=== PATIENT | female | born 1965 | race Caucasian/White ===

== ENCOUNTER → 2017-03-18 | Outpatient (REF) | payer OTHER | LOC: M LAB REF 16:25 | PROVIDERS: ATTEND Physician Assistant Medical | DX: R35.0 Frequency of micturition (principal) ==

== ENCOUNTER 2017-06-05 06:47 | Inpatient (IN) | payer BC, OTHER ==
--- NOTE | 2017-05-29 12:52 | HPE ---
DATE OF ADMISSION: 06/05/2017 ATTENDING: Dr. Osmin Phelan. ADMISSION DIAGNOSIS: Back pain, pain radiating to her lower extremities. HISTORY: This a pleasant 51-year-old female patient with progressively worsening back pain and pain mainly down her right lower extremity and occasionally to her left lower extremity. She continues to have symptoms of normal day-to-day activities and work-related activities. She has elected for surgery for continued symptoms. She has consented by Dr. Phelan for a lumbar decompression and fusion from the right sided L4-5 and posterior interbody spinal fusion using hardware and bone graft and pedicle screws. She has failed to improve with nonsteroidal anti-inflammatory drugs (NSAIDs), physical therapy, rest and activity modification. X-rays are notable for dynamic spondylolisthesis L4-5, degenerative changes primary at L4-5 and facette degenerative changes at L4-5. MRI is consistent with spinal stenosis and a spondylolisthesis at L4-5. ALLERGIES: Seafood but no drug allergies. CURRENT MEDICATIONS: Reported by the patient as: - albuterol as needed as needed. - gabapentin 300 mg 1 tablet twice a day - lisinopril/hydrochlorothiazide 25/12.5 mg one tablet once a day - Motrin 800 mg one tablet three times a day. She was instructed to discontinue that 5 days prior to surgery. MEDICAL HISTORY: 1. Spinal stenosis. 2. Lumbar degenerative disc disease. 3. Lumbar spondylolisthesis L4-5. 4. Hypertension. 5. Elevated cholesterol. 6. Chronic obstructive pulmonary disease. PAST SURGICAL HISTORY: 1. Tubal ligation. 2. Appendectomy. 3. Foot surgery. 4. Gallbladder removed. 5. Hernia repair. SOCIAL HISTORY: She discontinued smoking. She occasionally uses alcohol. She is employed at [employer]: Denies fever or chills. Denies chest pain, shortness breath or cough. Denies recent URI or UTI symptoms. Has persistent back pain and pain down mainly her right leg, sometimes down her left leg. Denies any nausea or vomiting. PHYSICAL EXAMINATION: Today reveals alert well-nourished, well-developed female patient. She ambulates with a slow gait but her gait is not wide-based. She does not use assistive devices. Mood and affect are appropriate for the situation. Straight leg raise testing is irritable on the right, negative on the left. There is decreased light touch along the anterior tomas on the right side. Neck is supple without adenopathy or JVD. Lungs are clear to auscultation without rales or wheeze. Heart: Regular rate and rhythm. Abdomen: Bowel sounds are present. Height 63 inches, weight 218 pounds, temperature 97.8, pulse 82, respirations 14, blood pressure 122/98, BMI 37. Laboratory data was done at Dr. Dwayne Yan's office and that is pending for review. Medical optimization Dr. Dwayne Yan not present for review today. IMPRESSION: Symptomatic lumbar degenerative disc disease. Lumbar spinal stenosis and a dynamic spondylolisthesis at L4-5. Consented for a right-sided unilateral lumbar decompression L4-5 with pedicle screws, interbody fusion and bone graft of the posterior lumbar fusion.
[~2017-06-05] VITALS: Ht 162.6 cm; Wt 100.6 kg
[~2017-06-05 06:47] MED LIST: BACT800T5 PO; IBUP80TA PO; LISI20TA PO; NEUR300C PO; PROAAER10 INH; [UNRECOGNIZED DRUG - OTHER] PO
[2017-06-05] MEDS ORDERED: GABAPENTIN 300 MG CAP PO ONE (07:00)
[2017-06-05] MEDS ORDERED: LR 1,000 ML IV SCH ×2 (07:00→19:15)
[2017-06-05] MEDS ORDERED: PERCOCET 5MG/325MG TAB PO ONE (07:00)
[2017-06-05] MEDS ORDERED: CelecoXIB (CeleBREX) 100 MG CAP PO ONE (07:00)
[2017-06-05] MEDS ORDERED: ROCURONIUM BROMIDE 50 MG/5 ML VIAL As Ordered ONE ×2 (12:51→13:07)
[2017-06-05] MEDS ORDERED: LIDOCAINE 2% INJ 100 MG/5 ML SDV (FOR ANES.) As Ordered ONE (12:51)
[2017-06-05] MEDS ORDERED: PROPOFOL 200 MG/20 ML VIAL As Ordered ONE (12:51)
[2017-06-05] MEDS ORDERED: HYDROmorphone HCL 2 MG/ML 1ML VIAL (J1170) As Ordered ONE (12:51)
[2017-06-05] MEDS ORDERED: fentaNYL 100 MCG/2 ML INJECTION (J3010) As Ordered ONE (12:51)
[2017-06-05] MEDS ORDERED: MIDAZOLAM INJ 2 MG/2 ML VIAL (J2250) As Ordered ONE ×2 (12:51→14:09)
[2017-06-05] MEDS ORDERED: ONDANSETRON 4MG/2ML VIAL (J2405) As Ordered ONE ×2 (12:51→19:00)
[2017-06-05] MEDS ORDERED: NEOSTIGMINE 10 MG/10 ML VIAL (J2710) As Ordered ONE (13:04)
[2017-06-05] MEDS ORDERED: GLYCOPYRROLATE INJ 0.2 MG/ML 2 ML VIAL As Ordered ONE (13:04)
[2017-06-05] MEDS ORDERED: DESFLURANE 240 ML INHALANT As Ordered ONE (16:02)
[2017-06-05] MEDS ORDERED: ceFAZolin 2 GM/D5W 50 ML IV BAG (J0690 PER 500MG) As Ordered ONE (16:12)
[2017-06-05] MEDS ORDERED: fentaNYL 250 MCG/5 ML INJECTION (J3010) As Ordered ONE (16:20)
[2017-06-05] MEDS ORDERED: BUPIVACAINE HCL 0.5% 10 ML VIAL As Ordered ONE (17:55)
[2017-06-05] MEDS ORDERED: BUPIVACAINE LIPOSOME/PF 1.3% 20 ML VIAL (13.3MG/ML)(EXPAREL) As Ordered ONE (17:55)
[2017-06-05] MEDS ORDERED: MORPHINE 10 MG/ML 1ML VIAL IV PRN (19:15)
[2017-06-05] MEDS ORDERED: METOCLOPRAMIDE INJ 10MG/2ML VIAL (J2765) IV PRN (19:15)
[2017-06-05] MEDS ORDERED: HYDROmorphone HCL 1 MG/ML SYRINGE (J1170) IV PRN (19:15)
[2017-06-05] MEDS ORDERED: ONDANSETRON 4MG/2ML VIAL (J2405) IV PRN (19:15)
[2017-06-05] MEDS ORDERED: PERCOCET 5MG/325MG TAB PO PRN ×2 (19:15→19:30)
[2017-06-05] MEDS ORDERED: fentaNYL 100 MCG/2 ML INJECTION (J3010) IV PRN (19:15)
[2017-06-05] MEDS ORDERED: D5W/LR 1,000 ML IV SCH (19:30)
[2017-06-05] MEDS ORDERED: ALBUTEROL 90 MCG/ACT 8GM HFA INHALER INH PRN (19:30)
[2017-06-05] MEDS ORDERED: PROMETHAZINE INJ 25 MG/ML VIAL (J2550) IV PRN (19:30)
[2017-06-05 19:40] VITALS: BP 134/81
[2017-06-05 20:20] VITALS: BP 134/85
[2017-06-05] MEDS: PERCOCET 5MG/325MG TAB PO PRN (20:40)
[2017-06-05] MEDS: GABAPENTIN 300 MG CAP PO SCH (20:40)
[2017-06-05 21:20] VITALS: BP 140/87
[2017-06-05 22:20] VITALS: BP 149/91
[2017-06-05 23:20] VITALS: BP 142/89
[2017-06-06 00:20] VITALS: BP 145/89
[2017-06-06 02:00] VITALS: BP 142/80
[2017-06-06] MEDS: PERCOCET 5MG/325MG TAB PO PRN ×4 (03:44→17:16)
[2017-06-06 06:00] VITALS: BP 139/77
[2017-06-06] MEDS ORDERED: PERC5TAB12 PO (08:46)
[2017-06-06] MEDS: GABAPENTIN 300 MG CAP PO SCH ×2 (09:00→21:19)
[2017-06-06] MEDS: MOM 30ML SUSPENSION UDC PO SCH (09:02)
[2017-06-06] MEDS: METAMUCIL (PSYLLIUM) PACKET PO SCH (09:02)
[2017-06-06] MEDS: LISINOPRIL 20 MG TAB PO SCH (09:03)
[2017-06-06] MEDS: hydroCHLOROthiazide 12.5 MG CAPSULE PO SCH (09:03)
[2017-06-06 10:00] VITALS: BP 107/69
[2017-06-06] MEDS: HYDROmorphone HCL 1 MG/ML SYRINGE (J1170) IV PRN ×2 (11:19→14:13)
--- NOTE | 2017-06-06 12:06 | REP ---
PORTABLE LUMBAR SPINE, ONE VIEW: HISTORY: Spondylolisthesis. A single portable lateral radiograph was obtained. Metal probes are present overlying the neural arch at the L4-5 and L5-S1 levels. Unreviewed
[2017-06-06 14:00] VITALS: BP 115/64
[2017-06-06 22:00] VITALS: BP 107/61
[2017-06-07] MEDS: PERCOCET 5MG/325MG TAB PO PRN ×2 (03:16→12:25)
[2017-06-07 06:00] VITALS: BP 119/66
[2017-06-07] MEDS ORDERED: MORP15TASA PO (07:17)
[2017-06-07] MEDS: GABAPENTIN 300 MG CAP PO SCH (08:48)
[2017-06-07 08:49] VITALS: BP 119/66
[2017-06-07] MEDS: METAMUCIL (PSYLLIUM) PACKET PO SCH (08:49)
[2017-06-07] MEDS: MOM 30ML SUSPENSION UDC PO SCH (08:49)
[2017-06-07] MEDS: LISINOPRIL 20 MG TAB PO SCH (08:49)
[2017-06-07] MEDS: hydroCHLOROthiazide 12.5 MG CAPSULE PO SCH (08:49)
[2017-06-07] MEDS ORDERED: INFLUENZA QUADRIVALENT PF VACCINE 0.5ML SYRINGE (90686) IM ONE (09:00)
[2017-06-07] MEDS ORDERED: MORPHINE 15 MG SA TAB PO SCH (09:00)
--- NOTE | 2017-06-08 10:18 | RO ---
DATE OF PROCEDURE: 06/05/2017 PREOPERATIVE DIAGNOSIS: L4-5 spondylolisthesis with neurogenic claudication affecting the right more than the left lower extremity. POSTOPERATIVE DIAGNOSIS: L4-5 spondylolisthesis with neurogenic claudication affecting the right more than the left lower extremity. PROCEDURE PERFORMED: Right unilateral laminectomy L4 for decompression of the thecal sac and exiting nerve root, right unilateral laminectomy L5 for decompression of the thecal sac and traversing nerve root, posterior interbody fusion at L4-5 combined technique including removal of disc material endplate preparation and intertransverse fusion, posterior nonsegmental instrumentation with pedicle screws at L4-5, harvest and placement of morselized iliac crest autograft for spine surgery, harvest and placement of local autograft for spine surgery. SURGEON: Osmin Phelan MD SHIPS EQUIPMENT ENGINEER: GISSEL Calixto ANESTHESIA: General anesthesia. ESTIMATED BLOOD LOSS: 300 mL replaced with crystalloid. COMPLICATIONS: No complications. COMPONENTS USED: Include K2M ALEUTIAN pedicle screw system size of 65, 45 mm pedicle screws times two, size 65 45 pedicle screws times two, 40 mm connecting mihaela the appropriate end caps, also utilized 10 mL demineralized bone matrix putty, 15 mL crushed cancellus donor graft. Consent reviewed in detail with the patient including a sara discussion of the pathology involved, procedure proposed, alternatives including doing nothing and risks including but not limited to pain, failure, infection, bleeding, blood loss, incomplete relief of symptoms, need for additional surgery, nerve injury and other medical issues. The patient understands and agrees to proceed with surgery. OPERATIVE COURSE: Patient identified in the holding area, site and side verified. She was brought to the operating room. General endotracheal anesthesia was administered. She was positioned in a prone position on the Renny frame for the lumbar spine, knees slightly flexed. Once I and the environmental engineering manager were comfortable with the patient's positioning, she was then sterilely prepped and draped in usual fashion. During the procedure, Cruz was to gravity. Next, the patient's body mass index was greater than 40 and this significantly extended the difficulty and length of time required to implement this procedure. Next, the incision was outlined with a marking pen, infiltrated with 0.25% Marcaine with epinephrine and made with a 10 blade knife. The incision was based on bony landmarks and the incision was approximately 10 cm long. It was developed down through skin and subcuticular tissues to the posterior lumbar fascia. Bipolar and monopolar cautery were utilized for hemostasis. At the posterior lumbar fascia, we reflected the posterior lumbar fascia off of the spinous processes, leaving the midline interspinous ligament intact. I first stood on the right side of the table using 3.5 loupe magnification. Mr. Richardson initially stood on the left side of the table while I did this dissection and assisted including suction and helping with retraction. The dissection continued down the lamina of 4 and 5 exposing them. I utilized the high-speed bur to drill a divot in the lamina 5 and the lamina 4 and then we obtained a cross-table lateral x-ray with metallic probes in the divot marking the 4-5 level. Next, once the level was verified, the dissection continued exposing superiorly and inferiorly. For the contralateral side we switched sides. Mr. Richardson utilized the Mina retractor on the patient's right and I implemented dissection over the transverse processes of 4 and 5. Next, I dissected the left paraspinal musculature down to the facet complex of 4-5. We then again switched sides. Mr. Richardson utilizing the Mina retractor and we dissected to the transverse processes of 4 and 5 on the patient's left. Next, once this was accomplished, we irrigated, placed the shadow line retractor on the patient's right side for exposure of the 4-5 level. At this stage, my loupe and headlamps were removed and we brought in the operating microscope for additional portions of the procedure. I removed the right facet complex of 4-5 using a Leksell and this bone graft was retained. I removed posterior lamina of 4 and 5 with the Leksell on the right side and this bone graft material was retained. Once this was accomplished, I utilized the high-speed bur, Mr. Richardson utilized suction and retraction apparatus. We utilized the high-speed bur to implement the right unilateral laminectomy of 4, extending superiorly through the bare area of 4 laterally, through the 4-5 facet complex at the level of the pars and inferiorly into the L5 lamina and into the L5 bare area and undercutting the spinous processes of 4 and 5. Next, lateral recess was decompressed with #2 Kerrison's. I removed the posterior longitudinal ligament using #2 Kerrison's as well as curettes, exposing the thecal sac. Bipolar cautery was utilized for hemostasis. Root retractors were used by Sol Dylan to expose the disc at 4-5. Bipolar cautery was utilized, the disc annulus was opened by myself with an 11 blade, and disk material was removed from the right side at 4-5. This was followed by conical reamers beginning with a size 8 and up through a size 11, which seemed to fit well. I then rasped the vertebral body end plates at 4-5 using a ring curette and I placed an 11 mm x 28 mm sounding device in the interspace and this seemed to fit appropriately. Next, the disc was then removed. Irrigation was accomplished. Next, the operating microscope was removed from the field and the C-arm was brought in. The C-arm was draped and moved into the lateral position and carefully positioned. We began placement of pedicle screws on the left side for distraction through the interspace. I accessed the pedicle on the left at 4-5 by first opening with the high-speed bur followed by use of the pedicle finder, the ball-tip probe, the 55 tap, the ball tip probe to verify pedicle tract integrity, including the floor, and then measurement and placement of screws. At the L4 level on the left side, I placed a 45 mm screw based on the measurement of the ball tip wire and the appearance of fluoroscopic images. Next, the L5 level was approached in a similar fashion and at the L5 level I measured and placed a 40 mm pedicle screw. Next, once this was accomplished the connecting mihaela was placed across the screws, caps were placed and I distracted across the connecting mihaela to open the interspace better. Next, attention was then turned to the contralateral right side. We first obtained from the iliac crest bone graft from the patient's right iliac crest. This was exposed through a separate fascial incision and I obtained the bone graft using large Lynch curettes. This was then irrigated and I closed the fascial incision. Next, I utilized dry Gelfoam which was used to pack the defect. Next, once this was accomplished we packed the 28 mm x 11 mm CASCADIA titanium cage with iliac collapsed morselized bone graft. I also coated the cage with demineralized bone matrix putty. Additional bone graft was placed into the 10 mm funnel and this was tamped into the interspace along with demineralized putty. I then placed the 28 mm CASCADIA cage. Mr. Richardson retracted the thecal sac and traversing nerve root, and I tamped the cage into place. The cage was rotated to the 11 mm height and I verified cage placement using fluoroscopic images. Once this was accomplished, we removed the targeting handle and we turned our attention to the pedicle screws. On the left side, I released the distraction tension on the pedicle screws and I placed the left pedicle screws in slight compression. On the right side, we placed pedicle screws in a similar fashion as on the left, again cannulating the L4 pedicle by drilling the mammillary process using pedicle finder followed by a ball tip guide followed by the tap followed by again use of the ball tip guide verifying the pedicle tract, including the floor, measurement and placement of a 45 screw at L4 on the patient's right side. At L5 we accessed to the pedicle in a similar fashion and placed a 40 mm screw. Next, the connecting mihaela 40 mm was placed and I placed it on the patient's right side in compression and placed the end caps, which were secured using the torque counter torque device. Next, using Mina retractors. Mr. Richardson exposed transverse process and I placed remaining iliac crest and also local bone, which had been harvested using the Lukens trap, mixed with demineralized bone matrix putty as well as the 15 mL of crushed cancellous over the transverse processes which had been decorticated on the patient's right and left sides. Additional bone material was placed in the interlaminar and around the facet on the patient's left side since the laminectomy was accomplished through the right side. Next, prior to doing this we had irrigated. I also added vancomycin crystals, approximately 1 gram, to the operative field and bone graft that was being placed and we irrigated this well with concentrated bacitracin. Next, once this was accomplished, retractors were removed and the posterior lumbar fascia was reapproximated with interrupted #1 and #0 stitches. Next, Exparel local anesthetic solution 20 mL mixed with 20 mL saline mixed with 20 mL 0.5% Marcaine was obtained and was injected circumferentially around the wound for perioperative pain control. Next, the deep dermis was approximated with interrupted stitch and skin was reapproximated with Prineo dressing. Next, once this was accomplished the patient was moved to the supine position on the hospital bed. The Cruz was removed. She was extubated. She was moved to recovery room in good condition. This patient received a second dose of Ancef at 4 hours into the operative procedure. Mr. Richardson was present and participated in the entirety case of the case in the capacity of first crusher. For further details, please refer to medical record.
--- NOTE | 2017-06-08 16:54 | DSES ---
DATE OF ADMISSION: 06/05/2017 DATE OF DISCHARGE: 06/07/2017 ADMITTING DIAGNOSIS: L4-5 spondylolisthesis with neurogenic claudication affecting the right greater than left lower extremity. OTHER DIAGNOSES: 1. Hypertension. 2. Hyperlipidemia. 3. Chronic obstructive pulmonary disease. DISCHARGE DIAGNOSIS: L4-5 spondylolisthesis with neurogenic claudication affecting the right greater than left lower extremity status post right-sided unilateral lumbar decompression at L4-5 with pedicle screws, interbody fusion, and bone graft of the posterior lumbar fusion. The patient is a 51-year-old female with progressively worsening low back pain with radiation mainly down into her right lower extremity and occasionally her left lower extremity. She continued to have symptoms with her normal activities of daily living, so she consented for a lumbar decompression and fusion from the right-sided L4-5 and posterior interbody spinal fusion using hardware and bone graft with pedicle screws with Dr. Phelan. OPERATION PERFORMED: 1. Right unilateral laminectomy at L4 and L5 for decompression of the thecal sac and exiting nerve root. 2. Posterior interbody fusion at L4-5 combined technique, including removal of disc material and plate preparation and intertransverse fusion with posterior non-segmental instrumentation with pedicle screws at L4-5. 3. [place] and placement of morcellized iliac crest autograft. HOSPITAL COURSE: The patient underwent a right unilateral lumbar decompression at L4-5 with pedicle screws, interbody fusion, and bone graft of the posterior lumbar fusion. Surgery was done under general anesthesia and was without complication. Her hospital course was uneventful. She was discharged on oral pain medications and will resume her preoperative medications and diet. She will use her thromboembolic deterrent stockings for 30 days postoperatively to prevent deep venous thrombosis. She will followup in our office in approximately 3 days for a wound check. She is encouraged to contact our office sooner if there is any increased pain, redness, drainage, numbness or tingling in the extremities, radicular symptoms, fever greater than 101 degrees, or any other concerns. Please see medical record for additional details.
== END 2017-06-07 12:55 | disposition home or self-care (01) | DRG 304 ==
LOC: M OR 06:47 → M MS5PR 19:40
PROVIDERS: ADMIT Orthopaedic Surgery; ATTEND Orthopaedic Surgery
PROC: 0SB20ZZ Excision of Lumbar Vertebral Disc, Open Approach (ICD-10-PCS; 2017-06-05)
PROC: 01NB0ZZ Release Lumbar Nerve, Open Approach (ICD-10-PCS; 2017-06-05)
PROC: 0SH004Z Insertion of Internal Fixation Device into Lumbar Vertebral Joint, Open Approach (ICD-10-PCS; 2017-06-05)
PROC: 0SG1071 Fusion of 2 or more Lumbar Vertebral Joints with Autologous Tissue Substitute, Posterior Approach, Posterior Column, Open Approach (ICD-10-PCS; principal; 2017-06-05 08:30)
DX: M48.062 Spinal stenosis, lumbar region with neurogenic claudication (principal); I10 Essential (primary) hypertension; M51.36 Other intervertebral disc degeneration, lumbar region; M43.16 Spondylolisthesis, lumbar region; E78.00 Pure hypercholesterolemia, unspecified; J44.9 Chronic obstructive pulmonary disease, unspecified; Z79.899 Other long term (current) drug therapy; Z87.891 Personal history of nicotine dependence

== ENCOUNTER → 2019-05-11 | Outpatient (CLI) | payer BC, OTHER ==
[~2019-05-11] MED LIST changes: -LISI20TA PO; +LISI20TA19 PO; +MORP15TASA PO; +PERC5TAB12 PO
[2019-05-11 16:23] LABS: BLOOD UREA NITROGEN 11 MG/DL (7-18); CALCIUM LEVEL 8.9 MG/DL (8.5-10.1); CARBON DIOXIDE LEVEL 27 MEQ/L (21-32); CHLORIDE LEVEL 107 MEQ/L (98-107); GLOMERULAR FILTRATION RATE > 60.0 (>51); GLUCOSE, FASTING 94 MG/DL (70-100); POTASSIUM SERUM 3.8 MEQ/L (3.5-5.1); SODIUM LEVEL 142 MEQ/L (136-145)
--- NOTE | 2019-05-11 17:45 | ECGEPIP ---
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
== END ==
LOC: M LAB 15:04
PROVIDERS: ATTEND Orthopaedic Surgery Hand Surgery
DX: Z01.812 Encounter for preprocedural laboratory examination (principal); Z79.899 Other long term (current) drug therapy

== ENCOUNTER → 2019-07-08 | Outpatient (CLI) | payer OTHER, BC ==
[2019-07-08 10:43] LABS: HEMATOCRIT 41.6 % (36.0-47.0); MEAN CORPUSCULAR HGB CONC 31.3 g/dl (32.0-36.5); MEAN CORPUSCULAR VOLUME 86.5 fl (80.0-96.0); PLATELET COUNT, AUTOMATED 295 10^3/uL (150-450); RED BLOOD COUNT 4.81 10^6/uL (4.00-5.40)
[2019-07-08 10:44] LABS: APPEARANCE, URINE CLEAR (CLEAR); BACTERIA, URINE AUTO 1+ (NEGATIVE); BILIRUBIN, URINE AUTO NEGATIVE (NEGATIVE); BLOOD, URINE BLOOD NEGATIVE (NEGATIVE); COLOR, URINE COLORLESS (YELLOW); GLUCOSE, URINE (UA) AUTO NEGATIVE (NEGATIVE); KETONE, URINE AUTO NEGATIVE (NEGATIVE); LEUKOCYTE ESTERASE, URINE AUTO 1+ (NEGATIVE); NITRITE, URINE AUTO NEGATIVE (NEGATIVE); PROTEIN, URINE AUTO NEGATIVE (NEGATIVE); RBC, URINE AUTO 0 /HPF (0-3); SPECIFIC GRAVITY URINE AUTO 1.001 (1.002-1.035); SQUAMOUS EPITHELIAL CELL UR AU 0 /HPF (0-6); UROBILINOGEN, URINE AUTO 0.2 mg/dL (0.0-2.0); WBC, URINE AUTO 1 /HPF (0-3)
[2019-07-08 11:14] LABS: ALBUMIN 3.8 GM/DL (3.2-5.2); ALT/SGPT 33 U/L (12-78); BILIRUBIN,TOTAL 0.4 MG/DL (0.2-1.0); BLOOD UREA NITROGEN 15 MG/DL (7-18); CALCIUM LEVEL 9.1 MG/DL (8.5-10.1); CARBON DIOXIDE LEVEL 26 MEQ/L (21-32); CHLORIDE LEVEL 106 MEQ/L (98-107); CREATININE FOR GFR 0.68 MG/DL (0.55-1.30); GLOMERULAR FILTRATION RATE > 60.0 (>51); GLUCOSE, FASTING 100 MG/DL (70-100); POTASSIUM SERUM 4.8 MEQ/L (3.5-5.1); SODIUM LEVEL 141 MEQ/L (136-145); TOTAL PROTEIN 7.5 GM/DL (6.4-8.2)
== END ==
LOC: M WUC 08:20
PROVIDERS: ATTEND Physician Assistant
DX: R73.01 Impaired fasting glucose (principal); E78.5 Hyperlipidemia, unspecified; I10 Essential (primary) hypertension

== ENCOUNTER → 2019-07-15 | Outpatient (CLI) | payer BC, OTHER ==
--- NOTE | 2019-07-15 16:47 | REP ---
Duplex extremity venous ultrasound: Right lower extremity. History: Pain in the right leg. Rule out DVT. Findings: The deep veins are anechoic and fully compressible from the groin to the popliteal fossa in the right lower extremity. Color flow imaging is homogeneous. Spectral Doppler interrogation demonstrates intact respiratory variation in flow and normal manual augmentation of flow. There is no evidence of deep vein thrombosis. Impression: Negative right lower extremity duplex venous ultrasound. No evidence of deep vein thrombosis. Electronically Signed by Luis Miguel Duque MD 07/15/2019 04:39 P
== END ==
LOC: M RAD 16:06
PROVIDERS: ATTEND Orthopaedic Surgery Hand Surgery
DX: M79.661 Pain in right lower leg (principal)

== ENCOUNTER → 2020-12-27 | Outpatient (CLI) | payer BC, OTHER ==
[~2020-12-27] MED LIST changes: -LISI20TA19 PO; +LISI20TA35 PO
--- NOTE | 2020-12-27 15:41 | REP ---
INDICATION: CHEST DISCOMFORT FORMER SMOKER HTN COMPARISON: None. TECHNIQUE: PA and lateral. FINDINGS: The mediastinum and cardiac silhouette are normal. The lung mcclain are clear and without acute consolidation, effusion, or pneumothorax. The skeletal structures are intact and normal. IMPRESSION: No acute cardiopulmonary process. If the patient remains symptomatic consider chest CT for further investigation. <Electronically signed by Tee Summers > 12/27/20 1534
== END ==
LOC: M RAD 15:20
PROVIDERS: ATTEND Family Medicine
DX: R07.9 Chest pain, unspecified (principal); I10 Essential (primary) hypertension; Z87.891 Personal history of nicotine dependence

== ENCOUNTER → 2021-02-11 | Outpatient (CLI) | payer BC, OTHER | LOC: M LAB 17:26 | PROVIDERS: ATTEND Internal Medicine Cardiovascular Disease | DX: R23.2 Flushing (principal) ==

== ENCOUNTER → 2021-02-14 | Outpatient (REF) | payer BC, OTHER | LOC: M LAB REF 09:15 | PROVIDERS: ATTEND Internal Medicine Cardiovascular Disease | DX: R23.2 Flushing (principal) ==

== ENCOUNTER → 2021-06-26 | Outpatient (CLI) | payer BC, OTHER ==
[2021-06-26 08:07] LABS: ALBUMIN 3.5 GM/DL (3.2-5.2); ALT/SGPT 48 U/L (12-78); BILIRUBIN,TOTAL 0.2 MG/DL (0.2-1.0); BLOOD UREA NITROGEN 18 MG/DL (7-18); CALCIUM LEVEL 9.4 MG/DL (8.5-10.1); CARBON DIOXIDE LEVEL 29 MEQ/L (21-32); CHLORIDE LEVEL 105 MEQ/L (98-107); CHOLESTEROL LEVEL 265 MG/DL (<200); CHOLESTEROL RISK RATIO 6.022 (<5); CREATININE FOR GFR 0.75 MG/DL (0.55-1.30); GLOMERULAR FILTRATION RATE > 60.0 (>51); GLUCOSE, FASTING 132 MG/DL (70-100); HDL CHOLESTEROL 44 MG/DL (>40); LDL CHOLESTEROL 162 MG/DL (<100); MAGNESIUM LEVEL 2.2 MG/DL (1.8-2.4); NON-HDL-C 221 MG/DL; POTASSIUM SERUM 4.1 MEQ/L (3.5-5.1); SODIUM LEVEL 140 MEQ/L (136-145); TOTAL PROTEIN 7.5 GM/DL (6.4-8.2); TRIGLYCERIDES LEVEL 294 MG/DL (<150)
== END ==
LOC: M LAB 07:06
PROVIDERS: ATTEND Physician Assistant
DX: E78.2 Mixed hyperlipidemia (principal)

== ENCOUNTER → 2022-01-01 | Outpatient (CLI) | payer BC, OTHER ==
[~2022-01-01] MED LIST changes: +AMLO1TAB24 PO; +ATOR40TA75 PO; +HYDR12.55 PO; +METF500T13 PO; +OMEP40CA5 PO; +SM CPOW PO; +VALS1TAB68 PO; +XYZASOL2 PO
== END ==
LOC: M LABSMTC 09:30
PROVIDERS: ATTEND Anesthesiology
DX: Z01.812 Encounter for preprocedural laboratory examination (principal); Z20.822 Contact with and (suspected) exposure to COVID-19

== ENCOUNTER 2022-01-06 07:51 | Day surgery (SDC) | payer BC, OTHER ==
[~2022-01-06] VITALS: Ht 162.6 cm; Wt 124.7 kg
[~2022-01-06 07:51] MED LIST changes: +NS 1,000 ML IV ONE
[2022-01-06] MEDS ORDERED: fentaNYL 100 MCG/2 ML INJECTION As Ordered ONE (09:05)
[2022-01-06] MEDS ORDERED: LIDOCAINE 2% INJ 100 MG/5 ML SYRINGE As Ordered ONE (09:05)
[2022-01-06] MEDS ORDERED: propofoL 200 MG/20 ML VIAL As Ordered ONE ×2 (09:05→09:08)
[2022-01-06 09:53] VITALS: BP 131/75
== END 2022-01-06 09:53 | disposition home or self-care (01) ==
LOC: M OPP 07:51
PROVIDERS: ATTEND Internal Medicine Gastroenterology
DX: Z12.11 Encounter for screening for malignant neoplasm of colon (principal); K57.30 Diverticulosis of large intestine without perforation or abscess without bleeding; K64.0 First degree hemorrhoids; K22.89 Other specified disease of esophagus; K44.9 Diaphragmatic hernia without obstruction or gangrene; K31.89 Other diseases of stomach and duodenum; R10.13 Epigastric pain; Z79.51 Long term (current) use of inhaled steroids; Z79.84 Long term (current) use of oral hypoglycemic drugs; Z79.899 Other long term (current) drug therapy; Z79.02 Long term (current) use of antithrombotics/antiplatelets; Z87.891 Personal history of nicotine dependence
CPT/HCPCS: 43239; 45378; 88305; J3010

== ENCOUNTER → 2024-08-08 | Outpatient (CLI) | payer BC ==
[~2024-08-08] MED LIST changes: -NS 1,000 ML IV ONE
== END ==
LOC: M WHC 14:15
PROVIDERS: ATTEND Obstetrics & Gynecology
DX: N81.3 Complete uterovaginal prolapse (principal); D25.1 Intramural leiomyoma of uterus; N88.8 Other specified noninflammatory disorders of cervix uteri

== ENCOUNTER → 2024-09-01 | Outpatient (CLI) | payer BC ==
[~2024-09-01] MED LIST changes: +ALBU2TAB13 INH; +TIRZ7.5P SC
[2024-09-01 17:03] LABS: APPEARANCE, URINE CLEAR (CLEAR); BACTERIA, URINE AUTO NEGATIVE (NEGATIVE); BILIRUBIN, URINE AUTO NEGATIVE (NEGATIVE); BLOOD, URINE BLOOD NEGATIVE (NEGATIVE); COLOR, URINE YELLOW (YELLOW); GLUCOSE, URINE (UA) AUTO 1+ mg/dL (NEGATIVE); KETONE, URINE AUTO NEGATIVE (NEGATIVE); LEUKOCYTE ESTERASE, URINE AUTO 1+ (NEGATIVE); NITRITE, URINE AUTO NEGATIVE (NEGATIVE); PROTEIN, URINE AUTO NEGATIVE (NEGATIVE); RBC, URINE AUTO 1 /HPF (0-3); SQUAMOUS EPITHELIAL CELL UR AU 1 /HPF (0-6); UROBILINOGEN, URINE AUTO 0.2 mg/dL (0.0-2.0); WBC, URINE AUTO 2 /HPF (0-3)
[2024-09-01 17:10] LABS: ALBUMIN 4.3 G/DL (3.2-5.2); ALKALINE PHOSPHATASE 68 U/L (35-104); ALT/SGPT 33 U/L (7.0-40); AST/SGOT 13 U/L (<34); BILIRUBIN,TOTAL 0.5 MG/DL (0.3-1.2); BLOOD UREA NITROGEN 18 MG/DL (9-23); CALCIUM LEVEL 10.2 MG/DL (8.5-10.1); CARBON DIOXIDE LEVEL 30 MMOL/L (20-31); CHLORIDE LEVEL 103 MMOL/L (98-107); CHOLESTEROL LEVEL 175 MG/DL (<200); CHOLESTEROL RISK RATIO 3.81 (<5); CREATININE FOR GFR 0.64 MG/DL (0.55-1.30); GLOMERULAR FILTRATION RATE > 60.0 (>51); GLUCOSE, FASTING 86 MG/DL (60-100); HDL CHOLESTEROL 45.9 MG/DL (>40); LDL CHOLESTEROL 101.9 MG/DL (<100); NON-HDL-C 129.1 MG/DL; POTASSIUM SERUM 4.3 MMOL/L (3.5-5.1); SODIUM LEVEL 141 MMOL/L (136-145); TOTAL PROTEIN 7.9 G/DL (5.7-8.2); TRIGLYCERIDES LEVEL 136 MG/DL (<150)
[2024-09-01 17:12] LABS: BASO # 0.1 10^3/uL (0.0-0.2); BASO % 0.6 % (0.0-1.0); EOS # 0.2 10^3/uL (0.0-0.5); EOS % 1.5 % (0.0-3.0); HEMATOCRIT 42.9 % (36.0-47.0); LYMPH # 2.9 10^3/uL (1.5-5.0); LYMPH % 25.3 % (24.0-44.0); MEAN CORPUSCULAR HEMOGLOBIN 27.5 pg (27.0-33.0); MEAN CORPUSCULAR HGB CONC 32.6 g/dl (32.0-36.5); MEAN CORPUSCULAR VOLUME 84.3 fl (80.0-96.0); MONO # 0.7 10^3/uL (0.0-0.8); MONO % 5.8 % (2.0-8.0); NEUTROPHILS # 7.7 10^3/uL (1.5-8.5); NEUTROPHILS % 66.5 % (36.0-66.0); PLATELET COUNT, AUTOMATED 290 10^3/uL (150-450); RED BLOOD COUNT 5.09 10^6/uL (4.00-5.40); WHITE BLOOD COUNT 11.6 10^3/uL (4.0-10.0)
== END ==
LOC: M WUC 12:04
PROVIDERS: ATTEND Family Medicine
DX: E11.9 Type 2 diabetes mellitus without complications (principal); I10 Essential (primary) hypertension; E78.5 Hyperlipidemia, unspecified

== ENCOUNTER 2024-09-07 07:28 | Observation (INO) | payer BC ==
[~2024-09-07] VITALS: Ht 154.9 cm; Wt 81.6 kg
[2024-09-07] VITALS (7 sets, daily range): BP systolic 114–137; BP diastolic 57–75; TEMP 96.8–98; O2SAT 93–97
[2024-09-07 08:23] LABS: HEMATOCRIT 37.5 % (36.0-47.0); HEMOGLOBIN 12.4 g/dl (12.0-15.5); MEAN CORPUSCULAR HEMOGLOBIN 28.4 pg (27.0-33.0); MEAN CORPUSCULAR HGB CONC 33.1 g/dl (32.0-36.5); MEAN CORPUSCULAR VOLUME 85.8 fl (80.0-96.0); PLATELET COUNT, AUTOMATED 236 10^3/uL (150-450); RED BLOOD COUNT 4.37 10^6/uL (4.00-5.40); WHITE BLOOD COUNT 6.4 10^3/uL (4.0-10.0)
[2024-09-07] MEDS ORDERED: fentaNYL 100 MCG/2 ML INJECTION As Ordered ONE (08:23)
[2024-09-07] MEDS ORDERED: LIDOCAINE 2% 100MG/5ML SDV (FOR ANES.) As Ordered ONE (08:23)
[2024-09-07] MEDS ORDERED: ROCURONIUM BROMIDE 50MG/5ML VIAL As Ordered ONE (08:23)
[2024-09-07] MEDS ORDERED: MIDAZOLAM INJ 2MG/2ML VIAL As Ordered ONE (08:24)
[2024-09-07] MEDS ORDERED: propofoL 200 MG/20 ML VIAL As Ordered ONE (08:24)
[2024-09-07] MEDS ORDERED: LR 1,000 ML IV SCH (08:45)
[2024-09-07] MEDS: ceFAZolin SOD 2 GM IV ONCE IV ONE (11:04)
[2024-09-07] MEDS ORDERED: ePHEDrine SULFATE 25 MG/5 ML(5MG/ML) SYRINGE As Ordered ONE (11:24)
[2024-09-07] MEDS ORDERED: ACETAMINOPHEN 1000MG/100ML IV BAG As Ordered ONE (11:43)
[2024-09-07] MEDS ORDERED: HYDROmorphone HCL 2MG/ML 1ML VIAL As Ordered ONE (11:50)
[2024-09-07] MEDS ORDERED: KETAMINE HCL 200MG/20ML VIAL As Ordered ONE (11:53)
[2024-09-07] MEDS: VASOPRESSIN INJ 20UNITS/ML 1ML VIAL As Ordered ONE (12:00)
[2024-09-07] MEDS ORDERED: CALCIUM CHLORIDE 10% 1 GM/10 ML SYR As Ordered ONE (12:27)
[2024-09-07] MEDS ORDERED: ONDANSETRON 4MG 2ML VIAL As Ordered ONE (12:27)
[2024-09-07] MEDS ORDERED: NEOSTIGMINE 10MG 10ML VIAL As Ordered ONE (12:27)
[2024-09-07] MEDS ORDERED: GLYCOPYRROLATE INJ 0.2 MG/ML 2 ML VIAL As Ordered ONE (12:27)
[2024-09-07] MEDS ORDERED: ESTROGENS VAGINAL CREAM 30GM As Ordered ONE (12:59)
[2024-09-07] MEDS ORDERED: PERC5TAB12 PO (13:29)
[2024-09-07] MEDS: MORPHINE 2 MG/ML 1ML VIAL IV PRN (13:44)
[2024-09-07] MEDS: ONDANSETRON 4MG 2ML VIAL IV PRN (13:44)
[2024-09-07] MEDS: oxyCODONE 5MG TAB PO PRN (13:53)
[2024-09-07] MEDS: fentaNYL 100 MCG/2 ML INJECTION IV PRN (14:02)
[2024-09-07] MEDS: LR 1,000 ML IV SCH (15:30)
[2024-09-07] MEDS: SIMETHICONE 80MG CHEW TAB PO SCH (17:14)
[2024-09-07] MEDS: IBUPROFEN 800 MG TAB PO SCH (17:14)
[2024-09-07] MEDS ORDERED: HOME MED LIST COMPLETE! XX SCH (19:35)
[2024-09-07] MEDS: PERCOCET 5MG/325MG TAB PO PRN (21:57)
[2024-09-08] VITALS: BP 134/75; TEMP 97.2; O2SAT 97
[2024-09-08 04:00] VITALS: BP 131/74; TEMP 97.2; O2SAT 96
[2024-09-08 08:00] VITALS: BP 114/77; TEMP 97.5; O2SAT 97
== END 2024-09-08 12:30 | disposition home or self-care (01) ==
LOC: M SDC 07:28 → M RR INP 07:29 → M PED 15:30
PROVIDERS: ADMIT Obstetrics & Gynecology; ATTEND Obstetrics & Gynecology
DX: N84.0 Polyp of corpus uteri (principal); D25.1 Intramural leiomyoma of uterus; I10 Essential (primary) hypertension; E11.9 Type 2 diabetes mellitus without complications; E78.5 Hyperlipidemia, unspecified; K21.9 Gastro-esophageal reflux disease without esophagitis; J45.909 Unspecified asthma, uncomplicated; Z87.891 Personal history of nicotine dependence; Z91.013 Allergy to seafood; G47.33 Obstructive sleep apnea (adult) (pediatric); Z79.84 Long term (current) use of oral hypoglycemic drugs; Z79.899 Other long term (current) drug therapy
CPT/HCPCS: 36415; 57260; 57282; 58260; 85027; 86850; 86900; 86901; 88302; 88307; 96360; 96361; J0131; J0690; J1171; J1596; J2250; J2405; J2598; J2710; J3010

== ENCOUNTER 2025-04-12 18:25 | Emergency (ER) | payer BC ==
[~2025-04-12] VITALS: Ht 162.6 cm; Wt 84.1 kg
[~2025-04-12 18:25] MED LIST changes: +MORP-138 PO; -MORP15TASA PO; +POLY119P PO; -SM CPOW PO
[2025-04-12] MEDS ORDERED: OXYB5TAB14 (18:40)
[2025-04-12 19:46] LABS: CPK CREATINE PHOSPHOKINASE 131 U/L (34-145)
[2025-04-12 19:47] LABS: BASO # 0.1 10^3/uL (0.0-0.2); BASO % 0.5 % (0.0-1.0); CALCIUM LEVEL 9.8 MG/DL (8.5-10.1); CARBON DIOXIDE LEVEL 31 MMOL/L (20-31); CHLORIDE LEVEL 99 MMOL/L (98-107); CK-MB VALUE MASS 1.5 NG/ML (<3.6); CREATININE FOR GFR 0.61 MG/DL (0.55-1.30); EOS # 0.2 10^3/uL (0.0-0.5); EOS % 1.5 % (0.0-3.0); GLOMERULAR FILTRATION RATE > 90.0 (>51); LYMPH # 2.7 10^3/uL (1.5-5.0); LYMPH % 24.5 % (24.0-44.0); MAGNESIUM LEVEL 2.0 MG/DL (1.8-2.4); MB/CK RELATIVE INDEX 1.14 (< OR =4); MONO # 0.6 10^3/uL (0.0-0.8); MONO % 5.5 % (2.0-8.0); NEUTROPHILS # 7.5 10^3/uL (1.5-8.5); NEUTROPHILS % 67.6 % (36.0-66.0); PLATELET COUNT, AUTOMATED 318 10^3/uL (150-450); POTASSIUM SERUM 3.6 MMOL/L (3.5-5.1); SODIUM LEVEL 140 MMOL/L (136-145)
[2025-04-12] MEDS ORDERED: NITROGLYCERIN 0.4 MG SUBL TABLET SL PRN (20:45)
[2025-04-12 21:14] LABS: CK-MB VALUE MASS 1.3 NG/ML (<3.6)
[2025-04-12] MEDS: ASPIRIN 81 MG CHEWABLE TABLET PO ONE (21:14)
[2025-04-12 21:15] LABS: CPK CREATINE PHOSPHOKINASE 112.0 U/L (34-145); MB/CK RELATIVE INDEX 1.16 (< OR =4)
[2025-04-12] MEDS ORDERED: ISOVUE-370 76% 100 ML VIAL As Ordered ONE (22:10)
[2025-04-13] VITALS: O2SAT 97
[2025-04-13 00:07] VITALS: BP 138/91; TEMP 97.3
== END 2025-04-13 00:13 | disposition home or self-care (01) ==
LOC: M ED 18:25
DX: R07.89 Other chest pain (principal); R94.31 Abnormal electrocardiogram [ECG] [EKG]; E11.9 Type 2 diabetes mellitus without complications; I10 Essential (primary) hypertension; E78.5 Hyperlipidemia, unspecified; J44.9 Chronic obstructive pulmonary disease, unspecified; Z87.891 Personal history of nicotine dependence; Z90.49 Acquired absence of other specified parts of digestive tract; Z79.899 Other long term (current) drug therapy
CPT/HCPCS: 36415; 70544; 70551; 71045; 71275; 80048; 82550; 82553; 83735; 84484; 85025; 93005; 93041; 94760; 99285; Q9967

== ENCOUNTER → 2025-04-24 | Outpatient (CLI) | payer BC ==
[~2025-04-24] MED LIST changes: +OXYB5TAB14
[2025-04-24 18:26] LABS: BASO # 0.1 10^3/uL (0.0-0.2); BASO % 0.8 % (0.0-1.0); EOS # 0.2 10^3/uL (0.0-0.5); EOS % 2.3 % (0.0-3.0); LYMPH # 2.8 10^3/uL (1.5-5.0); LYMPH % 35.2 % (24.0-44.0); MONO # 0.7 10^3/uL (0.0-0.8); MONO % 8.9 % (2.0-8.0); NEUTROPHILS # 4.1 10^3/uL (1.5-8.5); NEUTROPHILS % 52.3 % (36.0-66.0); PLATELET COUNT, AUTOMATED 337 10^3/uL (150-450)
[2025-04-24 18:44] LABS: ALT/SGPT 37 U/L (7.0-40); AST/SGOT 17 U/L (<34); CALCIUM LEVEL 9.4 MG/DL (8.5-10.1); CARBON DIOXIDE LEVEL 31 MMOL/L (20-31); CHLORIDE LEVEL 103 MMOL/L (98-107); CREATININE FOR GFR 0.62 MG/DL (0.55-1.30); GLOMERULAR FILTRATION RATE > 90.0 (>51); POTASSIUM SERUM 4.4 MMOL/L (3.5-5.1); RHEUMATOID FACTOR QUANT < 3.5 IU/ML (<14); SODIUM LEVEL 141 MMOL/L (136-145)
[2025-04-24 18:48] LABS: FREE T4 1.21 NG/DL (0.89-1.76)
[2025-04-24 19:03] LABS: ESTIMATED AVERAGE GLUCOSE 103.0 MG/DL (60-110)
[2025-04-24 19:09] LABS: VITAMIN B12 LEVEL > 2000 PG/ML (211-911)
[2025-04-28 18:18] LABS: VITAMIN E(ALPHA TOCOPHEROL) 13.7 mg/L (5.7-19.9); VITAMIN E(GAMMA TOCOPHEROL) 1.2 mg/L (<=4.3)
[2025-04-29 00:33] LABS: VITAMIN B6,PYRIDOXAL PHOSPHATE 98.8 ng/mL (2.1-21.7)
== END ==
LOC: M LAB 15:53
PROVIDERS: ATTEND Psychiatry & Neurology Neurology
DX: E11.9 Type 2 diabetes mellitus without complications (principal); E07.9 Disorder of thyroid, unspecified; E53.8 Deficiency of other specified B group vitamins; R41.3 Other amnesia